=== PATIENT | female | born 1990 | race African-American/Black ===

== ENCOUNTER 2016-11-08 02:46 | Emergency (ER) | payer BC, SELFPAY ==
--- NOTE | ~2016-11-08 | EKG ---
PATIENT: RONNI GIBBS UNIT #: [id number] Ventricular Rate: 90 BPM Atrial Rate: 90 BPM P-R Interval: 148 ms QRS Duration: 88 ms Q-T Interval: 388 ms QTC Calculation(Bezet): 474 ms P [place]: 27 degrees Calculated R [place]: 42 degrees Calculated T [place]: 14 degrees Diagnosis Line: Normal sinus rhythm with sinus arrhythmia Diagnosis Line: Normal ECG Diagnosis Line: When compared with ECG of 04-SEP-2013 13:21, Diagnosis Line: QT has lengthened Diagnosis Line: Confirmed by MINH MURCIA MD ([id number]) on 11/08/2016 Diagnosis Line: 5:23:38 PM INTERPRETING MD: DIVINA CRUZ
--- NOTE | ~2016-11-08 | CT16 ---
[facility] A Service of [facility] RADIOLOGY TEXT RESULTS PATIENT: RONNI GIBBS LOCATION: [facility] : [birth year] UNIT #: [id number] AGE: [address]: Tommy Mccormick MD SEX: F ORDER DR: [id number] [facility] [address] [place], [place] [address] [id number] E MR#: [id number] Acc #: [id number] NAME: RONNI GIBBS : 1990 SEX: F STUDY DATE/TIME: 11/08/2016 04:11 UNIT: [facility] ROOM: STUDY DESCRIPTION: CT Angio Chest for PE Attending Physician: Tommy Mccormick M.D. Ordering Physician: Calos Quevedo D.O. Primary Care Physician: Anh Antonio M.D. MEDICAL IMAGING REPORT This report is preliminary unless electronic signature is present EXAM Chest CTA, 11/08 at 04:11 hours INDICATION Bilateral lower extremity edema for the last 3 days. Patient also has shortness of air and left side chest pain in that time with weakness. Pain is 5/10. TECHNIQUE Axial images were obtained through the chest following IV contrast administration. 3-D reformats were obtained. This CT exam was performed with one or more of the following radiation dose reduction techniques: automatic exposure control, adjustment of mA and/or kV according to patient size, and iterative reconstruction. COMPARISON No comparison chest CT. FINDINGS There is no pulmonary embolism or aortic dissection. There is no pleural or pericardial effusion. There is no adenopathy. The lungs are clear. No pneumothorax is seen. Continuation through the abdomen reveals a normal abdominal aorta to the extent that it is seen. The gallbladder is surgically absent. IMPRESSION No pulmonary embolism or aortic dissection. Normal chest CT. Patient is status post cholecystectomy. Dictated by... Mendel Sandoval Jr., M.D. [facility] A Service of [facility] RADIOLOGY TEXT RESULTS PATIENT: RONNI GIBBS LOCATION: [facility] : [birth year] UNIT #: [id number] AGE: [address]: Tommy Mccormick MD SEX: F ORDER DR: THIS IS AN ELECTRONICALLY VERIFIED REPORT Mendel Sandoval Jr., M.D. at 11/11/2016 7:20 AM KELTON/petrona TD: 11/08/2016 08:33 JOB #: [id number] MEDICAL IMAGING REPORT COPY
--- NOTE | ~2016-11-08 | US84 ---
[id number] [facility] [address] [place], [place] [address] [id number] E MR#: [id number] Acc #: [id number] NAME: RONNI GIBBS : 1990 SEX: F STUDY DATE/TIME: 11/08/2016 7:19 UNIT: [facility] ROOM: STUDY DESCRIPTION: US LE Veins Complete Jeffery Stdy Attending Physician: Tommy Mccormick M.D. Ordering Physician: Calos Quevedo D.O. Primary Care Physician: Anh Antonio M.D. MEDICAL IMAGING REPORT This report is preliminary unless electronic signature is present EXAM Bilateral lower extremity venous ultrasound HISTORY Lower extremity pain and swelling for 3 days. TECHNIQUE Venous ultrasound examination of both lower extremities was performed using grayscale, spectral Doppler and color flow Doppler imaging. FINDINGS The examination is negative. There is no evidence of deep venous thrombus from the groin to the lower calf bilaterally. Visualized greater saphenous veins are also patent. IMPRESSION Negative examination. No evidence of bilateral lower extremity deep venous thrombosis. Dictated by... Best Henriquez M.D. THIS IS AN ELECTRONICALLY VERIFIED REPORT Best Henriquez M.D. at 11/08/2016 10:25 AM TERESITA/petrona TD: 11/08/2016 09:53 JOB #: [id number] MEDICAL IMAGING REPORT COPY
--- NOTE | ~2016-11-08 | CR63 ---
[facility] A Service of [facility] RADIOLOGY TEXT RESULTS PATIENT: RONNI GIBBS LOCATION: [facility] : [birth year] UNIT #: [id number] AGE: [address]: Tommy Mccormick MD SEX: F ORDER DR: [id number] [facility] [address] [place], [place] [address] [id number] E MR#: [id number] Acc #: [id number] NAME: RONNI GIBBS : 1990 SEX: F STUDY DATE/TIME: 11/08/2016 03:11 UNIT: [facility] ROOM: STUDY DESCRIPTION: CR Chest 2 View Attending Physician: Tommy Mccormick M.D. Ordering Physician: Calos Quevedo D.O. Primary Care Physician: Anh Antonio M.D. MEDICAL IMAGING REPORT This report is preliminary unless electronic signature is present EXAM Chest x-ray, 11/08 03:11 hours INDICATION Cough and congestion for the last 2 weeks with swelling in the legs for the last 3 days. COMPARISON 06/18/2016 FINDINGS PA and lateral examination of the chest upright shows a good expansion of the parenchyma with a normal distribution of the pulmonary vascularity. There is no indication of congestion, effusion, infiltrate, tumor, or nodular density. The pleural reflections and diaphragmatic contours are normal. The cardiac silhouette and mediastinal anatomy is within normal limits. IMPRESSION Normal chest. Dictated by... Mendel Sandoval Jr., M.D. THIS IS AN ELECTRONICALLY VERIFIED REPORT Mendel Sandoval Jr., M.D. at 11/11/2016 7:20 AM KELTON/petrona TD: 11/08/2016 08:19 JOB #: [id number] MEDICAL IMAGING REPORT COPY
[~2016-11-08 02:46] MED LIST: ACYCLOVIR PO; ACYCLOVIR200 MG PO; ACYCLOVIR400 MG PO; MACROBID100 MG; MACROBID100 MG PO; ORTHO EVRA1 PATCH.WK TOP; PENCICLOVIR TOP; PHENERGAN DM1 ML PO; PHENERGAN25 MG PO; PREDNISONE PO; PRENATAL1 TA1 PO; VICODIN 5/1 TAB 5/50 DOB; ZITHROMAX1 G/PKT PO
[2016-11-08 03:02] LABS: BASOPHIL# 0.1 X10e3 (0-0.3); BASOPHIL% 0.6 % (0-2.5); EOSINOPHIL# 0.4 X10e3 (0-0.7); EOSINOPHIL% 3.7 % (0.0-7.0); HEMATOCRIT 39.4 % (35.0-45.0); LYMPHOCYTE# 2.9 X10e3 (1.0-3.5); LYMPHOCYTE% 27.6 % (17.0-45.0); MEAN CELL VOLUME 87.5 FL (83-96); MEAN CORPUSCULAR HEMOGLOBIN 28.9 PG (28-34); MEAN CORPUSCULAR HGB CONC 33.1 g/dL (30-36); MEAN PLATELET VOLUME 10.8 FL (6.5-11.5); MONOCYTE# 1.3 X10e3 (0-1.0); MONOCYTE% 12.8 % (3.0-12.0); NEUTROPHIL# 5.8 X10e3 (1.5-7.1); NEUTROPHIL% 55.3 % (40-75); RED CELL DISTRIBUTION WIDTH 13.3 % (11.0-15.5); WHITE BLOOD COUNT 10.4 X10e3 (4.0-10.5)
[2016-11-08 03:08] LABS: POC - CKMB 4.5 ng/mL (0.0-7.9); POC - TROPONIN <0.05 ng/mL (<=0.05)
[2016-11-08 03:14] LABS: PARTIAL THROMBOPLASTIN TIME 25.4 SECONDS (23.5-31.3)
[2016-11-08 03:17] LABS: DIFF IND NO; PLATELET COUNT 173 X10e3 (140-420)
[2016-11-08 03:24] LABS: ALKALINE PHOSPHATASE 45 U/L (32-92); ALT (SGPT) 15 U/L (10-40); AST (SGOT) 27 U/L (10-42); BILIRUBIN,TOTAL 0.3 mg/dL (0.2-2.0); BLOOD UREA NITROGEN 13 mg/dL (9-23); BUN/CREATININE RATIO 16.25; CALCIUM SERUM 9.2 mg/dL (8.4-10.2); CARBON DIOXIDE 26 mmol/L (22-31); CHLORIDE 106 mmol/L (100-111); CREATININE SERUM 0.8 mg/dL (0.6-1.4); GLOM FILT RATE Estimated ABOVE60 mL/min (>60); GLUCOSE FASTING 96 mg/dL (70-110); POTASSIUM 3.6 mmol/L (3.5-5.1); PROTEIN TOTAL SERUM 7.5 g/dL (6.0-8.3); SODIUM 139 mmol/L (135-145)
[2016-11-08 03:27] LABS: INFLUENZA A POS (NEG); INFLUENZA B NEG (NEG)
[2016-11-08 03:27] LABS: BILIRUBIN, DIRECT 0.1 mg/dL (0.0-0.2); BILIRUBIN,INDIRECT 0.2 mg/dL (0.0-0.9)
[2016-11-08 05:08] LABS: POC - CKMB 2.9 ng/mL (0.0-7.9); POC - TROPONIN <0.05 ng/mL (<=0.05)
[2016-11-08] MEDS ORDERED: TOPIRAMATE15 MG PO (06:40)
[2016-11-08] MEDS ORDERED: SINGULAIR PO (06:40)
[2016-11-08] MEDS ORDERED: ACYCLOVIR PO (06:41)
[2016-11-08] MEDS ORDERED: AMLOD-VALSA-HC1 EAC1 PO (06:44)
== END 2016-11-08 09:01 | disposition home or self-care (01) ==
LOC: CED 02:46
PROVIDERS: Emergency Medicine
DX: R60.0 Localized edema (principal); J10.1 Influenza due to other identified influenza virus with other respiratory manifestations; I10 Essential (primary) hypertension; Z79.899 Other long term (current) drug therapy
CPT/HCPCS: 36415; 71020; 71275; 80048; 80076; 82553; 83880; 84484; 84703; 85025; 85379; 85610; 85730; 87804; 93005; 93970; 99284; Q9967